=== PATIENT | male | born 1975 | race Caucasian/White ===

== ENCOUNTER 2016-10-18 09:05 | Day surgery (SDC) | payer BC ==
[~2016-10-18] VITALS: Ht 182.9 cm; Wt 168.2 kg
[2016-10-18 09:42] LABS: HEMATOCRIT 43.4 % (42.0-54.0); HEMOGLOBIN 14.9 g/dL (13.5-17.5); MCH 30.5 pg (26.0-34.0); MCHC 34.3 g/dL (31.0-37.0); MCV 88.8 fL (80.0-100.0); MEAN PLATELET VOLUME 10.3 fL (7.4-10.4); RBC 4.89 10x6/uL (4.20-6.10); RDW 12.7 % (11.5-14.5); WBC 6.5 10x3/uL (4.8-10.8)
[2016-10-18] MEDS ORDERED: CYCLOBENZAPRINE10 MG PO (10:36)
[2016-10-18] MEDS ORDERED: ACCUPRIL10 MG PO (10:36)
[2016-10-18 10:41] VITALS: BP 135/82; Ht 182.9 cm; Wt 168.2 kg
--- NOTE | 2016-10-18 13:50 | NUR ---
1320 DISCHARGE INSTRUCTIONS COMPLETE. NO PRESCRIPTIONS GIVEN. GES SCHEDULED. ESCORTED OUT BY JUSTIN CELAYA.
--- NOTE | 2016-10-22 07:44 | OP ---
PATIENT NAME: NARINDER VÁSQUEZ MEDICAL RECORD: [id number] LOCATION:[facility] ADMISSION DATE: SURGEON: MARVIN PINA DO DATE OF OPERATION: 10/18/2016 PROCEDURE: EGD with biopsies. INDICATIONS FOR PROCEDURE: Epigastric pain, dysphagia, heartburn, pain provoked with eating. SCOPE: Tune video gastroscope. MEDICATIONS: Propofol 230 mg IV per anesthesia. ESTIMATED BLOOD LOSS: Minimal. COMPLICATIONS: None. FINDINGS: Informed consent was given. The patient was made comfortable with the above medication. After reaching an adequate level of sedation by slow IV push, the patient was placed on his left side. The endoscope was then advanced under direct visualization through the mouth to the second portion of the duodenum. The upper, middle, and lower thirds of the esophagus appeared normal, other than some linear furrowing. Middle esophagus, biopsies were taken to submit for histology to rule out eosinophilic esophagitis. At the GE junction, there was some LA class A reflux induced esophagitis. Two cold forceps biopsies were taken from the GE junction. The endoscope was advanced into the stomach and retroflexed to view the cardia where a small sliding hiatal hernia was present. The fundus and body of the stomach appeared normal. In the antrum and prepyloric region, there was some erythema and granularity consistent with possible gastritis. Random biopsies were taken to submit for histology and to rule out H. pylori. The endoscope was advanced into the small bowel where the duodenal bulb and second portion of the duodenum appeared normal. The scope was then withdrawn from the patient. The patient tolerated the procedure well and there were no complications. IMPRESSION: 1. LA class A reflux-induced esophagitis. 2. Small sliding hiatal hernia. 3. Possible gastritis, biopsies taken. PLAN AND RECOMMENDATIONS: 1. Discharge home when recovery parameters are met. 2. Continue current diet. 3. Continue current medications. 4. Consider gastric emptying study if pain with eating returns. 5. Recommend chewing food well and taking smaller bites to assure more ease with swallowing and to make sure the food clears in the throat area where the symptoms are persistent. 6. I do not believe that a motility study would aid in diagnosing cause of dysphagia, which sounds to be oral/oropharyngeal. TRANSINT:[id number] Voice Confirmation ID: [id number] DOCUMENT ID: [id number] OPERATIVE REPORT [id number] NARINDER VÁSQUEZMARVIN ARANDA DO at 0744 CC: [id number] DICTATION DATE: 10/18/16 1229 PHARMACOEPIDEMIOLOGIST: 10/18/162008 [facility] 10/18/16 [id number] [place] [address]
== END 2016-10-18 13:20 | disposition home or self-care (01) ==
LOC: D.OPS 09:05 → EDSEX 13:00 → D.OPS 13:00
PROVIDERS: Anesthesiology
DX: R10.13 Epigastric pain (principal); R12 Heartburn; R13.10 Dysphagia, unspecified; K44.9 Diaphragmatic hernia without obstruction or gangrene; K21.0 Gastro-esophageal reflux disease with esophagitis

== ENCOUNTER → 2016-10-23 09:44 | Outpatient (CLI) | payer BC ==
[2016-10-18 10:41] VITALS: BMI 50.3
[~2016-10-23 09:44] MED LIST: ACCUPRIL10 MG PO; CYCLOBENZAPRINE10 MG PO
== END | disposition home or self-care (01) ==
LOC: D.NM 09:44
DX: R10.13 Epigastric pain (principal); R13.10 Dysphagia, unspecified